=== PATIENT | male | born 1980 | race Caucasian/White ===

== ENCOUNTER 2024-09-11 07:55 | Emergency (ER) | payer OTHER, SELFPAY ==
[2024-09-11 08:01] VITALS: BP 143/98
--- NOTE | 2024-09-11 09:34 | ED.GENMED ---
History of Present Illness
General
Chief Complaint: Eye Problems
Source: patient and spouse
Exam Limitations: none
Time Seen by Provider: 09/11/24 08:53
Nursing documentation reviewed up to this point in time: agreed with
History of Present Illness
History of Present Illness:
44-year-old male presenting to the emergency department today with concerns of redness irritation discomfort to the left eye over the past 24 hours or so worsening this morning. Has some light sensitivity denies any significant changes in vision
any double vision. Denies any known trauma does wear contact lenses denies any issues with these recently.
Review of Systems
Review of Systems
Allergies reviewed?: Yes
All Other Systems: ROS reviewed and negative except as documented in HPI and ROS
Phy Exam
Physical Exam
Physical Exam:
GENERAL: Alert , in no apparent distress
EYE: pupils equal and reactive, fluorescein examination without evidence of injury to the cornea no ulceration no abrasion, normal extraocular movements normal eye pressure normal visual acuity of 20/20 bilaterally with correction of glasses
NECK: Supple, no significant adenopathy.
ENT: o/p clr, mmm.
CARDIAC: Regular rate and rhythm .
LUNGS: Clear breath sounds bilaterally, no acute respiratory distress, no wheezes/rales/rhonchi
ABDOMEN: Soft, without focal tenderness, no r/g, no cvat
NEUROLOGICAL: Alert and oriented, no focal neuro deficits
SKIN: Warm and dry, skin intact.
MUSCULOSKELETAL: No edema, well perfused.
PSYCH: Normal and appropriate interaction.
Course
Vital Signs
Initial and Last Documented VS:
Initial Vital Signs
Temp Pulse Resp BP Pulse Ox
98.2 F 93 18 143/98 98
09/11/24 08:01 09/11/24 08:01 09/11/24 08:01 09/11/24 08:01 09/11/24 08:01
Last Documented Vital Signs
Temp Pulse Resp BP Pulse Ox
98.2 F 93 18 143/98 98
09/11/24 08:01 09/11/24 08:01 09/11/24 08:01 09/11/24 08:01 09/11/24 08:01
MDM/Problems Addressed
MDM/Problems Addressed:
44-year-old male presenting to the emergency department today with concerns of redness irritation to the left eye starting yesterday. Some light sensitivity normal vital signs on examination significantly injected conjunctiva with ciliary sparing
normal anterior chamber no corneal abrasion, normal extraocular movements and normal pupil reaction. Normal eye pressure normal fluorescein examination. Patient with likely conjunctivitis was eyedrops and given information for ophthalmologic
follow-up as needed.
*Critical Care Note
Total Time (30-74mins, 75-104mins- exclusive of procedures): Not Applicable
ED Attending Note
-
Portions of this chart may have been created with voice recognition software.� Occasional wrong word or��sound alike� substitutions may have occurred due to the inherent limitations of voice recognition software.
Discharge Plan
Departure
Patient Disposition: Home (Routine Discharge)
Date of Disposition: 09/11/24
Time of Disposition: 09:36
Patient with high blood pressure during this ER visit?: No
Condition: Good
Covid-19: Not Applicable
Discharge Problem:
Conjunctivitis
Instructions: Conjunctivitis ([place]) (DC)
Prescriptions:
New
ofloxacin 0.3 % drops
1 drp ophthalmic (eye) QID Qty: 10 0RF
erythromycin 5 mg/gram (0.5 %) ointment
1 applic ophthalmic (eye) BID Qty: 3.5 0RF
Referrals:
UNKNOWN - PT DOES,NOT KNOW [Family Provider] -
Mariposa Dillard MD [Active] - Follow up in 5-7 days
Activity Restrictions/Additional Instructions:
You came to the emergency department today with concerns of redness and comfort to your eye. Here you had a reassuring semination with normal eye pressure, no signs of injury to your eye. This is likely conjunctivitis. Please use the eyedrops
over the next few days and follow-up with the eye doctor as needed. Return to the emergency department any worsening, new or concerning symptoms.
Interventions
Interventions:
*Risk Screen - Suicide Last Done: 09/11/24 08:01
*General Assessment Last Done: 09/11/24 08:01
*Neglect/Abuse Screening Last Done: 09/11/24 08:01
Discharge Date and Time
Print Language: ARABIC
== END 2024-09-11 09:58 | disposition home or self-care (01) ==
LOC: EMR 07:55
PROVIDERS: EMERGENCY PHYSICIAN Student in an Organized Health Care Education/Training Program
DX: H10.9 Unspecified conjunctivitis (principal)
CPT/HCPCS: 99283